=== PATIENT | male | born 1945 | race Caucasian/White ===

== ENCOUNTER 2016-09-12 08:27 | Day surgery (SDC) | payer OTHER ==
[2016-09-12] VITALS (16 sets, daily range): BP systolic 105–181; BP diastolic 60–103; PULSE 60–88; RESP 16–18; TEMP 97.4–98.5; O2SAT 96–99
[~2016-09-12] VITALS: Ht 177.8 cm; Wt 114.3 kg
[2016-09-12] MEDS ORDERED: SODIUM CHLORID 0.9% 500 ML INJ 500 ML IV SCH (09:00)
[2016-09-12] MEDS ORDERED: SODIUM CHLORID 0.9% 500 ML IV SCH (09:00)
[2016-09-12] MEDS ORDERED: LACTATED RINGER'S 1000 ML IV SCH (09:00)
[2016-09-12] MEDS ORDERED: INSULIN HUMAN REGULAR 1,000 UNITS/10 ML VIAL SQ PRN (09:30)
[2016-09-12] MEDS ORDERED: LORazepam 1 MG TAB SL SCH (09:30)
[2016-09-12] MEDS ORDERED: METOPROLOL TARTRATE 25 MG TAB PO PRN (09:30)
[2016-09-12 09:56] LABS: AUTOMATED NEUTROPHIL # 2.5 TH/MM3 (1.8-7.7); BASOPHIL % 0.9 % (0.0-2.0); EOSINOPHIL # 0.2 TH/MM3 (0-0.4); EOSINOPHIL % 4.3 % (0.0-4.0); HEMATOCRIT 34.9 % (39.0-51.0); LYMPH % 26.2 % (9.0-44.0); LYMPHOCYTE # 1.1 TH/MM3 (1.0-4.8); MEAN CELL VOLUME 94.2 FL (80.0-100.0); MEAN CORPUSCULAR HEMOGLOBIN 33.9 PG (27.0-34.0); MONO % 10.1 % (0.0-8.0); NEUT % 58.5 % (16.0-70.0); PLATELET COUNT 123 TH/MM3 (150-450); RED BLOOD COUNT 3.71 MIL/MM3 (4.50-5.90); RED CELL DISTRIBUTION WIDTH 12.8 % (11.6-17.2); WHITE BLOOD COUNT 4.3 TH/MM3 (4.0-11.0)
[2016-09-12] MEDS ORDERED: ASPI1TAB69 PO (09:57)
[2016-09-12] MEDS ORDERED: BUME1TAB PO (09:57)
[2016-09-12] MEDS ORDERED: SPIR25TA PO (09:57)
[2016-09-12] MEDS ORDERED: LEVO25TA4 PO (09:57)
[2016-09-12] MEDS ORDERED: NITR0.4S SL (09:57)
[2016-09-12] MEDS ORDERED: CELE1CAP11 PO (09:57)
[2016-09-12] MEDS ORDERED: LISI-515 PO (09:57)
[2016-09-12] MEDS ORDERED: ISOS60TA PO (09:57)
[2016-09-12] MEDS ORDERED: CARV25TA PO (09:57)
[2016-09-12] MEDS ORDERED: VITA100036 PO (09:57)
[2016-09-12] MEDS ORDERED: RANO500 PO (09:57)
[2016-09-12] MEDS ORDERED: PRESCAP5 PO (09:57)
[2016-09-12] MEDS ORDERED: ATOR20TA15 PO (09:57)
[2016-09-12] MEDS ORDERED: PRENTAB36 PO (09:57)
[2016-09-12] MEDS ORDERED: AMLO5TAB2 PO (09:57)
[2016-09-12] MEDS ORDERED: OMEP40CA2 PO (09:57)
[2016-09-12] MEDS ORDERED: GLIP10TA6 PO (09:57)
[2016-09-12] MEDS ORDERED: FOLI5CAP PO (09:58)
[2016-09-12 09:59] LABS: HEMO FLAGS AUTO DIFF
[2016-09-12] MEDS ORDERED: CHLORHEXIDINE GLUCONATE 2 % 1 PACK (2 CLOTHS) TOP SCH (10:00)
[2016-09-12] MEDS ORDERED: NS 1000 ML IV SCH (10:00)
[2016-09-12] MEDS ORDERED: POVIDONE IODINE 5% (ANTISEPSIS KIT) 4 APPLICATIONS EACH NARE SCH (10:00)
[2016-09-12 10:03] LABS: APTT (PATIENT) 25.9 SEC (24.3-30.1); INTERNATIONAL NORMALIZED RATIO 1.1 RATIO; PROTHROMBIN TIME - PATIENT 12.1 SEC (9.8-11.6)
[2016-09-12 10:18] LABS: BICARBONATE 24.9 MEQ/L (21.0-32.0); POTASSIUM 4.3 MEQ/L (3.5-5.1)
[2016-09-12] MEDS ORDERED: VANCOMYCIN HCL 1000 MG VIAL ONE (10:59)
[2016-09-12] MEDS ORDERED: SODIUM CHLOR 0.9% 250 ML INJ 250 ML ONE ×2 (11:00→13:01)
[2016-09-12 11:07] LABS: PLATELET ESTIMATE SMEAR LOW (NORMAL); PLATELET MORPHOLOGY NORMAL (NORMAL); SCAN/DIFF AUTO DIFF CONFIRMED
[2016-09-12] MEDS ORDERED: MIDAZOLAM HCL 2 MG/2 ML VIAL ONE ×2 (12:00→13:35)
[2016-09-12] MEDS ORDERED: IODIXANOL 320 MG/ML 50 ML VIAL (for Cath Lab) IV ONE (12:07)
[2016-09-12] MEDS ORDERED: SODIUM CHLORID 0.9% 500 ML BAG IV ONE (12:07)
[2016-09-12] MEDS ORDERED: PROPOFOL 200 MG/20 ML AMP IV ONE (12:07)
[2016-09-12] MEDS ORDERED: HEPARIN-NS/PF INJ 500 ML ONE (12:21)
[2016-09-12] MEDS ORDERED: VANCOMYCIN 500 MG VIAL ONE (12:23)
[2016-09-12] MEDS ORDERED: ISOPROTERENOL HCL 1 MG/5 ML AMP ONE (12:23)
[2016-09-12] MEDS ORDERED: LIDOCAINE HCL 2% 50 ML VIAL ONE (12:23)
[2016-09-12] MEDS: ceFAZolin 2 GM PREMIX 50 ML IV SCH ×3 (13:20→20:55)
--- NOTE | 2016-09-12 14:58 | PD.CARD ---
BIV/ICD Implantation PROCEDURE DATE: Sep 12, 2016 NYHA Classification: Class III (Moderate) Prevention: Primary BIV/ICD IMPLANT PROCEDURE Biventricular pacer defibrillator implantation and device testing. INDICATION FOR PROCEDURE Mr. Tyson is a 70-year-old male with congestive heart failure, cardiomyopathy, CHF III, EF 30 %, wide QRS, who undergo biventricular pacer defibrillator implantation. Post electrophysiology study the patient was kept on the table for device implantation. The risks, the nature and the benefit of the procedure were clearly stated to him. The risks include pneumothorax, cardiac perforation, stroke and even . He understood and agreed to proceed. PROCEDURE As written informed consent was obtained prior to electrophysiology study, the patient was kept on the table where he was prepped and draped in the usual sterile fashion. Conscious sedation was initiated and maintained throughout the procedure by the anesthesiologist. Once sedation was verified, the left infraclavicular area was anesthetized with 2% Xylocaine. Using modified Seldinger technique, the left subclavian vein was cannulated on three occasions and three guidewire were advanced. Then, using an 11 blade scalpel, a 3 cm incision was made over the existing generator. The incision was taken down to the fascial layer using Bovie cautery and blunt dissection. Into the inferomedial direction, a device pocket was dissected. Then the wires were dissected into pocket. A 2-0 Vicryl suture was placed around the wires to prevent back-bleeding. At this point, over the lateral wire, a 8-Turkmen dilator and introducer were advanced. As the dilator and wire were removed, an active fixation right ventricular pacing sensing defibrillatory lead was advanced. After adequate pacing and sensing thresholds were obtained, the lead was secured in the pocket using # 2 Ethibond suture. Then, over the lateral wire, a 7-Turkmen dilator and introducer was advanced. As the dilator and wire were removed, an active fixation right atrial pacing and sensing lead was advanced. The patient was in atrial fibrillation and thresholds could not be obtained, but there was adequate impedance and sensing. Then, over the remaining wire, a 9-Turkmen dilator and introducer were advanced. As the dilator and wire were removed, a CS cannulation sheath was advanced. Through the sheath a quadripolar steerable catheter was advanced. After multiple manipulations the coronary sinus was cannulated, and CS venography showed an adequate lateral branch. Using a [employer] wire the lateral branch was cannulated and the lead was advanced over the wire. After adequate pacing and sensing thresholds were obtained, the peel-away introducer was removed and the cutter introducer was removed, and the lead was secured in the pocket using # 2 Ethibond suture. At that point, the pocket was copiously irrigated with antibiotic solution. The leads were connected to the generator and placed into pocket. Because of the patient's general condition and was so unstable during the procedure, I did proceed with device testing.initial induction consisted of T wave shock which induced ventricular fibrillation which was adequately detected and treated by the ICD generator delivering a 20 joules defibrillatory shock converting the patient back into sinus rhythm. I did proceed with wound closure. The deep fascial layer was approximated using 2-0 suture in a continuous fashion. The subcutaneous layer was approximated with 2-0 Vicryl suture in a continuous fashion. The subcuticular layer was approximated with 2-0 Vicryl suture in a continuous fashion. Dermabond adhesive was applied to the wound followed by a sterile pressure dressing. This was a very complex case. There was no complication. Blood loss was minimal. IMPLANTED HARDWARE The implanted biventricular pacer defibrillator is a Biotronik model 546660, serial number [id number]. The right atrial pacing and sensing lead is a Biotronik model number 403717, serial number [id number]. The right ventricle pacing sensing defibrillatory is a Biotronik model 697549, serial number [id number]. The left ventricular pacing sensing lead is a Medtronic model 4398-88, serial number [id number]. THRESHOLDS The right atrial pacing threshold in a bipolar mode was .8V @ 0.4. Lead impedance 534 ohms. P wave at 6.2 mv. The right ventricle pacing threshold in the bipolar mode was 0.7 volts at 0.4 milliseconds, lead impedance 565 ohms, and shocking impedance 40 ohms. R wave at 16.5mv. The left ventricular pacing threshold in the bipolar mode was 1.1 volts at 0.5 milliseconds, lead impedance 700 ohms. SETTINGS The device was set in a DDD 60, upper limit 120 beats per minute. LV first by 40 milliseconds. The defibrillatory portion was set for two zones. One zone for Ventricular tachycardia between 160 and 240 beats per minutes. The initial therapy consisted of one burst of ATP, one RAMP, 81%, 10 pulses, 10 millisecond decremental followed by 20, then 30 and 40 joules defibrillatory shock. The second zone is for ventricle fibrillation above 240, the first therapy at 40 and all subsequent shocks at 30 joules defibrillatory shock. CONCLUSIONS Successful biventricular pacer defibrillator implantation and device testing. COMMENT AND RECOMMENDATION The patient will be transferred to the telemetry unit. He will be observed and when stable can be discharged home. Brennan Sen MD Sep 12, 2016 14:58
[2016-09-12] MEDS ORDERED: SODIUM CHLOR 0.9% 250 ML INJ 250 ML IV PRN (15:00)
[2016-09-12] MEDS ORDERED: LORazepam 2 MG/ML VIAL IV PRN (15:00)
[2016-09-12] MEDS ORDERED: SODIUM CHLORIDE 0.9% FLUSH 5 ML FLUSH IVF PRN (15:00)
[2016-09-12] MEDS ORDERED: LIDOCAINE HCL 1% 50 ML VIAL INFIL PRN (15:00)
[2016-09-12] MEDS ORDERED: ATROPINE SULFATE 1 MG/ML VIAL IV PRN (15:00)
[2016-09-12] MEDS ORDERED: PILL SPLITTER OTHER PRN (15:30)
--- NOTE | 2016-09-12 15:50 | PD.CARD ---
ELECTROPHYSIOLOGY STUDY PROCEDURE DATE: Sep 12, 2016 ELECTROPHYSIOLOGY STUDY NOTE PROCEDURE Electrophysiology study, coronary sinus cannulation and repeat electrophysiology on isuprel infusion. HISTORY Mr. Tyson is a 70 -year-old male with congestive heart failure, ischemic cardiomyopathy, ejection fraction 32% referred for electrophysiology study and defibrillator implantation for sudden prevention. The risks, the nature and the benefit of the procedure are clearly stated to him . Risks include pneumothorax, cardiac perforation, stroke and even . He understood and agreed to proceed. PROCEDURE NOTE After written informed consent was obtained, the patient was brought to the EP lab where he was prepped and draped in the usual sterile fashion. Conscious sedation was initiated and maintained throughout the procedure by anesthesiologist. Once sedation was verified, the right inguinal area was anesthetized with 2% Xylocaine. Using modified Seldinger technique, the right femoral vein was cannulated on four occasions and four guidewires were advanced. Then, over the wires three 5 and one 6 Tajik Hemaquet were advanced. Then, under fluoroscopic guidance through the Hemaquet four 5 Tajik Deonna curved quadripolar electrophysiology catheters were advanced and positioned along the His, upper right atrium and coronary sinus and right ventricular apex. Basic intervals were measured. Atrial pacing protocol was performed. Wenckebach was high. Over 700 ms. Ventricular pacing protocol was performed. Ventricular pacing protocol, no tachy was induced. Then isuprel infusion was initiated. No tachy was induced. Blood pressure dropped in the 70s. I had to discontinue the protocol. At that point, procedure was complete. All catheters and Hemaquet were removed. The patient will be kept on the table and a single chamber defibrillator will be implanted for sudden prevention. No incident reported. The patient tolerated the procedure. Blood loss minimal. IMPRESSION 1. Electrocardiogram: At baseline the patient was in sinus rhythm. Post-procedure electrocardiogram was unchanged. 2.-Atrial pacing protocol: No tachyarrhythmia was induced 3. Basic Interval: The basic cycle length was around 890 milliseconds. AH was 300ms H-V was around 74 milliseconds. 3. Ventricular Pacing Protocol: No ventricular tachyarrhythmia was induced. Isuprel. CONCLUSIONS Negative electrophysiology for supra and ventricular tachycardia. COMMENT AND RECOMMENDATION The patient will be kept on the table and a biventricular pacer defibrillator will be implanted for sudden prevention and resynchronization therapy. Brennan Sen MD Sep 12, 2016 15:50
[2016-09-12] MEDS ORDERED: ONDANSETRON HCL 4 MG/2 ML VIAL IV PRN ×2 (16:00)
[2016-09-12] MEDS ORDERED: METOCLOPRAMIDE HCL 10 MG/2 ML VIAL IV PRN (16:00)
[2016-09-12] MEDS ORDERED: oxyCODONE/ACETAMINOPHEN 5 MG/325 MG TAB PO PRN (16:00)
[2016-09-12] MEDS ORDERED: BACITRACIN OINT 0.9 GM PKT TOP ONE (16:00)
--- NOTE | 2016-09-12 16:12 | RADRPT ---
EXAM DATE/TIME: 09/12/2016 15:05 [facility] COMPARISON: No previous studies available for comparison. INDICATIONS : Post op. Pacemaker placement. MEDICAL HISTORY : None. SURGICAL HISTORY : Pacemaker. ENCOUNTER: Initial ACUITY: 1 day PAIN SCORE: Non-responsive. LOCATION: Bilateral chest FINDINGS: A single AP semierect portable view of the chest was obtained and demonstrates the patient is status post median sternotomy. A left subclavian AV sequential transvenous pacer is noted in place with defi brillator leads. The heart size is mildly enlarged. There are no confluent infiltrates or effusions. There is no pneumothorax. CONCLUSION: Pacemaker placement with no evidence of pneumothorax. Rene Kumar MD on September 12, 2016 at 16:10 Board Certified Radiologist. This report was verified electronically.
[2016-09-12] MEDS ORDERED: DO NOT ADM ANY ANTICOAGULANT DRUGS XX PRN (16:30)
[2016-09-12] MEDS: glipiZIDE 10 MG TAB PO SCH (17:08)
--- NOTE | 2016-09-12 18:15 | EKG ---
Date Performed: 09/12/2016 Time Performed: 08:56:36 PTAGE: 70 years EKG: The underlined rhythm could be a junctional rhythm or a Sinus rhythm with markedly prolonged AV block. Consider ventricular conduction delay with secondary ST T wave ch anges. Leftward axis Poor R wave progression - probable normal variant Inferior/lateral ST-T changes may be due to myocardial ischemia No prior tracing to compare with Abnormal ECG NO PREVIOUS TRACING DOCTOR: Michael Scott Interpretating Date/Time 09/12/2016 18:14:16
[2016-09-12] MEDS: RANOLAZINE 500 MG EXTENDED RELEASE TAB PO SCH (20:54)
[2016-09-12] MEDS: CARVEDILOL 12.5 MG TAB PO SCH (20:54)
[2016-09-12] MEDS: SODIUM CHLORIDE 0.9% FLUSH 5 ML FLUSH IVF SCH (20:55)
[2016-09-12] MEDS ORDERED: [UNRECOGNIZED DRUG - OTHER] PO SCH (21:00)
[2016-09-12] MEDS ORDERED: CELECOXIB PO SCH (21:00)
[2016-09-12] MEDS ORDERED: ATORVASTATIN 20 MG TAB PO SCH (21:00)
[2016-09-12] MEDS: oxyCODONE/ACETAMINOPHEN 5 MG/325 MG TAB PO PRN ×2 (22:50→23:40)
[2016-09-13] VITALS (10 sets, daily range): BP systolic 105–109; BP diastolic 50–55; PULSE 60–84; RESP 16–18; TEMP 98.4–98.6; O2SAT 96–98
[2016-09-13] MEDS: ceFAZolin 2 GM PREMIX 50 ML IV SCH (04:36)
[2016-09-13] MEDS ORDERED: LEVOTHYROXINE SODIUM 25 MCG TAB PO SCH (06:00)
[2016-09-13] MEDS ORDERED: LISINOPRIL 20 MG TAB PO SCH (09:00)
[2016-09-13] MEDS ORDERED: PANTOPRAZOLE SOD 40 MG DELAYED RELEASE TAB PO SCH (09:00)
[2016-09-13] MEDS ORDERED: [UNRECOGNIZED DRUG - OTHER] PO SCH (09:00)
[2016-09-13] MEDS ORDERED: MULTIPLE VITAMINS PO SCH (09:00)
[2016-09-13] MEDS ORDERED: PT PRESERVISION AREDS PO SCH (09:00)
[2016-09-13] MEDS ORDERED: ISOSORBIDE MONONITRATE 60 MG TAB PO SCH (09:00)
[2016-09-13] MEDS ORDERED: SPIRONOLACTONE 25 MG TAB PO SCH (09:00)
[2016-09-13] MEDS ORDERED: FOLIC ACID 1 MG TAB PO SCH (09:00)
[2016-09-13] MEDS ORDERED: MINERALS PO SCH (09:00)
[2016-09-13] MEDS ORDERED: BUMETANIDE 1 MG TAB PO SCH (09:00)
[2016-09-13] MEDS ORDERED: ASPIRIN EC 81 MG TABEC PO SCH (09:00)
[2016-09-13] MEDS ORDERED: CHOLECALCIFEROL (VIT D3) 1000 UNIT TAB PO SCH (09:00)
[2016-09-13] MEDS ORDERED: [UNRECOGNIZED DRUG - OTHER] PO SCH (09:00)
[2016-09-13] MEDS ORDERED: CEPH-460 PO (09:47)
[2016-09-13] MEDS: RANOLAZINE 500 MG EXTENDED RELEASE TAB PO SCH (09:48)
[2016-09-13] MEDS: CARVEDILOL 12.5 MG TAB PO SCH (09:48)
[2016-09-13] MEDS: glipiZIDE 10 MG TAB PO SCH (09:58)
[2016-09-13] MEDS: SODIUM CHLORIDE 0.9% FLUSH 5 ML FLUSH IVF SCH (09:59)
--- NOTE | 2016-09-13 10:02 | PD.CARD.PN ---
Subjective Subjective Remarks Feels ok Objective Medications Current Medications Medications (Trade) Dose Ordered Sig/Ann Route Start Time Stop Time Status Last Admin (Percocet 5-325 Mg) 1 tab Q4H PRN PO 09/12/16 16:00 09/12/16 23:40 (Percocet 5-325 Mg) 2 tab Q4H PRN PO 09/12/16 16:00 09/12/16 15:30 (Ativan Inj) 0.5 mg UNSCH PRN IV 09/12/16 15:00 09/13/16 14:59 Atropine Sulfate 0.5 mg 0.5 mg UNSCH PRN IV 09/12/16 15:00 (NS 250 ml Inj) 250 ml @ 500 mls/hr ONCE PRN IV 09/12/16 15:00 09/13/16 14:59 (Reglan Inj) 10 mg Q4H PRN IV 09/12/16 16:00 Lidocaine HCl 10 ml 10 ml UNSCH PRN INFIL 09/12/16 15:00 09/13/16 14:59 (Ancef 2 Gm Premix) 50 ml @ 100 mls/hr Q8H IV 09/12/16 20:00 09/13/16 12:29 09/13/16 04:36 (Zofran Inj) 4 mg Q4H PRN IV 09/12/16 16:00 (NS Flush) 2 ml BID IVF 09/12/16 21:00 09/12/16 20:55 (NS Flush) 2 ml UNSCH PRN IVF 09/12/16 15:00 (Ecotrin Ec) 81 mg DAILY PO 09/13/16 09:00 (Lipitor) 20 mg HS PO 09/12/16 21:00 09/12/16 20:54 (Bumetanide) 1 mg DAILY PO 09/13/16 09:00 09/13/16 09:48 (Coreg) 25 mg BID PO 09/12/16 21:00 09/13/16 09:48 (Vitamin D3) 1,000 units DAILY PO 09/13/16 09:00 (Folate) 1 mg DAILY PO 09/13/16 09:00 09/13/16 09:48 (Glucotrol) 10 mg BIDAC PO 09/12/16 16:00 09/12/16 17:08 (Imdur) 60 mg DAILY PO 09/13/16 09:00 09/13/16 09:48 (Synthroid) 25 mcg DAILY@06 PO 09/13/16 06:00 09/13/16 04:36 (Prinivil) 20 mg DAILY PO 09/13/16 09:00 09/13/16 09:48 (Protonix) 40 mg DAILY PO 09/13/16 09:00 09/13/16 09:48 (Ranexa) 500 mg BID PO 09/12/16 21:00 09/13/16 09:48 (Aldactone) 12.5 mg DAILY PO 09/13/16 09:00 09/13/16 09:48 (Pill Splitter) 1 ea UNSCH PRN OTHER 09/12/16 15:30 Patient Own Medication PT OWN MED: CELECO... BID PO 09/12/16 21:00 Hold Patient Own Medication PT OWN MED: PRESERVISION AREDS 2... DAILY PO 09/13/16 09:00 Hold Patient Own Medication PT OWN MED: PRENA... DAILY PO 09/13/16 09:00 Hold Miscellaneous Information ALL NURSING DEPARTME... UNSCH PRN XX 09/12/16 16:30 09/13/16 16:29 Vital Signs / I&O Vital Signs Date Time Temp Pulse Resp B/P Pulse Ox O2 Delivery O2 Flow Rate FiO2 09/13/16 08:00 98.6 65 18 109/50 98 09/13/16 05:00 70 09/13/16 04:00 60 09/13/16 03:02 98.4 84 16 105/55 96 09/13/16 03:00 60 09/13/16 02:00 60 09/13/16 01:00 64 09/13/16 00:00 66 09/12/16 23:30 98.4 88 16 122/67 96 09/12/16 23:00 70 09/12/16 22:00 70 09/12/16 21:00 70 09/12/16 20:46 99 09/12/16 20:00 66 09/12/16 19:01 98.4 64 16 124/69 96 09/12/16 19:00 70 09/12/16 18:48 97.8 60 18 110/69 09/12/16 17:50 20 09/12/16 17:48 98.0 60 18 121/65 09/12/16 17:18 97.6 61 18 105/66 09/12/16 16:48 97.4 60 18 112/68 09/12/16 16:18 98.0 65 18 110/62 09/12/16 15:48 97.4 66 18 106/60 09/12/16 15:33 97.4 65 18 106/65 09/12/16 10:05 98.5 87 18 181/103 99 I/O 09/12/16 09/12/16 09/12/16 09/13/16 09/13/16 09/13/16 07:00 15:00 23:00 07:00 15:00 23:00 Intake Total 240 ml Output Total 300 ml 700 ml Balance -300 ml -460 ml Intake Oral 240 ml Output Urine Total 300 ml 700 ml Physical Exam GENERAL: Well-nourished, well-developed patient. SKIN: Warm and dry. LCW incision well approx without erythema or drainage. HEAD: Normocephalic. EYES: No scleral icterus. No injection or drainage. NECK: Supple, trachea midline. No JVD or lymphadenopathy. CARDIOVASCULAR: Regular rate and rhythm without murmurs, gallops, or rubs. RESPIRATORY: Breath sounds equal bilaterally. No accessory muscle use. GASTROINTESTINAL: Abdomen soft, non-tender, nondistended. EXTREMITIES: No cyanosis, or edema. NEUROLOGICAL: Awake, alert, and oriented x 3. Non-focal. Imaging Last Impressions Chest X-Ray 09/12/16 0000 Signed Impressions: Service Date/Time: Monday, September 12, 2016 15:05 - CONCLUSION: Pacemaker placement with no evidence of pneumothorax. Rene Kumar MD Assessment and Plan Problem List: (1) Cardiomyopathy Assessment and Plan: Resume home meds. BiVICD implanted for [employer]. (2) S/P ICD (internal cardiac defibrillator) procedure Assessment and Plan: Biotronik BiVICD implanted. Interrogation good, CXR negative. DC home, f/u with Dr. Sen in 2 weeks. Discussed Condition With Pt., RN, Dr. Sen. Problem Qualifiers (1) Cardiomyopathy: Qualified Code: I25.5 - Ischemic cardiomyopathy Lashon Glass Sep 13, 2016 10:01
--- NOTE | 2016-09-13 22:50 | EKG ---
Date Performed: 09/13/2016 Time Performed: 03:50:50 PTAGE: 70 years EKG: Ventricular pacing Pacemaker rhythm - no further analysis Abnormal ECG PREVIOUS TRACING : 09/12/2016 08.56 DOCTOR: Brennan Sen Interpretating Date/Time 09/13/2016 22:46:55
== END 2016-09-13 12:59 | disposition home or self-care (01) ==
LOC: HDIC 08:27 → HDOC 08:27 → HCIS 15:18 → HDOC 09-13 12:59
PROVIDERS: ATTEND Internal Medicine Interventional Cardiology
DX: I25.5 Ischemic cardiomyopathy (principal); I11.0 Hypertensive heart disease with heart failure; I50.9 Heart failure, unspecified; I25.10 Atherosclerotic heart disease of native coronary artery without angina pectoris; E11.69 Type 2 diabetes mellitus with other specified complication; I25.2 Old myocardial infarction; R53.83 Other fatigue; R06.02 Shortness of breath; Z87.891 Personal history of nicotine dependence
CPT/HCPCS: 33225; 33249; 71010; 80048; 85025; 85610; 85730; 86850; 86900; 86901; 93005; 93620; 93623; C1730; C1769; C1882; C1895; C1898; C1900; J0690; J1644; J2250; J3010; J3370; J7040; J7050; C1779; Q9967